=== PATIENT | female | born 1995 | race African-American/Black ===

== ENCOUNTER 2023-03-08 07:57 | Emergency (ER) | payer BC, OTHER ==
[~2023-03-08] VITALS: Ht 157.5 cm; Wt 64.0 kg
[2023-03-08 08:00] VITALS: O2SAT 100
[2023-03-08] MEDS ORDERED: IBUPROFEN 600MG TABLET PO STA (08:06)
[2023-03-08] MEDS ORDERED: ACETAMINOPHEN 325MG TABLET PO STA (08:06)
[2023-03-08 08:38] LABS: BASOPHILS % 0.8 % (0.0-2.0); DIFFERENTIAL COMMENT 0; EOSINOPHILS % 3.6 % (0.0-5.0); HEMATOCRIT. 38.3 % (36.0-48.0); HEMOGLOBIN. 12.5 g/dL (12.0-16.0); LYMPHOCYTES % 38.8 % (20.0-50.0); MEAN CORPUSCULAR HEMOGLOBIN 25.4 pg (28.0-32.0); MEAN CORPUSCULAR HGB CONC 32.6 g/dL (31.0-37.0); MEAN PLATELET VOLUME 8.7 fl (7.4-10.4); MONOCYTES % 11.5 % (2.0-8.0); NEUTROPHILS % 45.3 % (40.0-76.0); PLATELET 338 x1000/uL (130-400); RED BLOOD CELL COUNT 4.91 mill/uL (4.2-5.4); RED CELL DISTRIBUTION WIDTH 14.6 % (11.6-14.6); WHITE BLOOD COUNT 3.9 x1000/uL (4.5-11.0)
[2023-03-08 08:57] LABS: HCG SCREEN NEGATIVE
[2023-03-08 09:00] LABS: CHLORIDE 107 mEq/L (98-107); INDEX HEMOLYSI 1 (1-3); INDEX ICTERIC 1 (1-4); INDEX LIPEMIC 1 (1-3); POTASSIUM 4.4 mEq/L (3.5-5.1); SODIUM 138 mEq/L (136-145)
[2023-03-08 09:11] LABS: ALANINE AMINOTRANSFERASE 16 IU/L (13-61); ALBUMIN 3.9 g/dL (3.4-5.0); ASPARTATE AMINOTRANSFERASE 14 IU/L (15-37); BILIRUBIN TOTAL 1.2 mg/dL (0.1-1.0); CALCIUM 9.3 mg/dL (8.5-10.1); CARBON DIOXIDE 29 mEq/L (21-32); GLUCOSE 101 mg/dL (70-105); NT PRO B-TYPE NATRIURETIC PEP 60 pg/mL (5-125); PROTEIN TOTAL 7.5 g/dL (6.0-8.3); UREA NITROGEN BLOOD 13 mg/dL (7-21)
[2023-03-08 09:14] LABS: TROPONIN I HIGH SENSITIVITY < 4 ng/L (<54)
[2023-03-08] MEDS ORDERED: LORAZEPAM 0.5MG TABLET PO ONE (10:00)
[2023-03-08 10:26] VITALS: BP 119/69; PULSE 102; RESP 14; TEMP 98.4
[2023-03-08 12:19] LABS: TROPONIN I HIGH SENSITIVITY < 4 ng/L (<54)
== END 2023-03-08 10:27 | disposition home or self-care (01) ==
LOC: ER 07:57
DX: R07.89 Other chest pain (principal); R00.0 Tachycardia, unspecified; Z68.25 Body mass index [BMI] 25.0-25.9, adult
CPT/HCPCS: 36415; 71045; 80053; 83880; 84484; 84703; 85025; 85379; 93005; 99285

== ENCOUNTER 2023-09-27 10:58 | Emergency (ER) | payer BC, OTHER ==
[~2023-09-27] VITALS: Ht 157.5 cm; Wt 65.8 kg
[2023-09-27 11:17] VITALS: BP 103/67; PULSE 100; RESP 16; TEMP 97.9; O2SAT 100
[2023-09-27 12:00] LABS: BASOPHILS % 0.5 % (0.0-2.0); DIFFERENTIAL COMMENT 0; EOSINOPHILS % 1.8 % (0.0-5.0); HEMATOCRIT. 36.5 % (36.0-48.0); HEMOGLOBIN. 12.1 g/dL (12.0-16.0); LYMPHOCYTES % 19.7 % (20.0-50.0); MEAN CORPUSCULAR HEMOGLOBIN 26.3 pg (28.0-32.0); MEAN CORPUSCULAR HGB CONC 33.2 g/dL (31.0-37.0); MEAN CORPUSCULAR VOLUME 79.2 fL (81.0-99.0); MEAN PLATELET VOLUME 8.7 fl (7.4-10.4); MONOCYTES % 7.2 % (2.0-8.0); NEUTROPHILS % 70.8 % (40.0-76.0); PLATELET 322 x1000/uL (130-400); RED BLOOD CELL COUNT 4.61 mill/uL (4.2-5.4); RED CELL DISTRIBUTION WIDTH 14.4 % (11.6-14.6); WHITE BLOOD COUNT 7.1 x1000/uL (4.5-11.0)
[2023-09-27 12:43] LABS: ALANINE AMINOTRANSFERASE 29 IU/L (10-49); ALBUMIN 4.1 g/dL (3.2-4.8); ASPARTATE AMINOTRANSFERASE 27 IU/L (<34); B-HCG QUANTITATIVE 10605 mIU/mL (<3); BILIRUBIN TOTAL 0.7 mg/dL (0.1-1.0); CALCIUM 8.7 mg/dL (8.7-10.4); CARBON DIOXIDE 27 mEq/L (21-32); CHLORIDE 104 mEq/L (98-107); CREATININE 0.7 mg/dL (0.6-1.0); GLUCOSE 95 mg/dL (70-105); POTASSIUM 4.2 mEq/L (3.5-5.1); PROTEIN TOTAL 6.6 g/dL (6.0-8.3); SODIUM 136 mEq/L (136-145); UREA NITROGEN BLOOD 7 mg/dL (9-23)
== END 2023-09-27 13:20 | disposition home or self-care (01) ==
LOC: ER 11:55
DX: O36.8120 Decreased fetal movements, second trimester, not applicable or unspecified (principal); Z3A.23 23 weeks gestation of pregnancy; Z98.890 Other specified postprocedural states; Z88.2 Allergy status to sulfonamides
CPT/HCPCS: 36415; 76805; 80053; 84702; 85025; 86850; 86900; 99284